=== PATIENT | female | born 1980 | race Caucasian/White ===

== ENCOUNTER 2016-07-07 08:32 | Observation (INO) | payer MEDICAID ==
[~2016-07-07] VITALS: Ht 152.4 cm; Wt 68.0 kg
[2016-07-07] MEDS ORDERED: PREN-88 PO (12:30)
[2016-07-07] MEDS ORDERED: iron PO (12:30)
== END 2016-07-07 12:55 | disposition home or self-care (01) ==
LOC: L&D 08:32
PROVIDERS: ADMIT Obstetrics & Gynecology; ATTEND Obstetrics & Gynecology
DX: O26.893 Other specified pregnancy related conditions, third trimester (principal); R10.9 Unspecified abdominal pain; Z3A.39 39 weeks gestation of pregnancy
CPT/HCPCS: G0378 ×3

== ENCOUNTER 2017-09-06 06:22 | Day surgery (SDC) | payer MEDICAID ==
[~2017-09-06] VITALS: Ht 152.4 cm; Wt 57.2 kg
[2017-09-06] MEDS ORDERED: LACTATED RINGERS 1,000 ML IV SCH (06:30)
[2017-09-06 07:07] LABS: UCG SCREEN NEGATIVE
[2017-09-06 07:10] LABS: CHLORIDE 107 mEq/L (98-107)
[2017-09-06 07:11] LABS: INR 1.1; PARTIAL THROMBOPLASTIN TIME 28.9 sec (23.4-31.0)
[2017-09-06] MEDS ORDERED: BIRTH CONTROL PILL PO (07:29)
[2017-09-06] MEDS ORDERED: IBUP-2028 PO (07:29)
[2017-09-06] MEDS ORDERED: SKIN ADHESIVE 0.7 GM EA TOP ONE (07:37)
[2017-09-06] MEDS ORDERED: BUPIVACAINE HCL/PF 0.5% (5MG/ML) 10ML ONE (07:37)
[2017-09-06 07:41] LABS: BASOPHILS % 0.9 % (0.0-2.0); HEMATOCRIT. 42.2 % (36.0-48.0); HEMOGLOBIN. 14.5 g/dL (12.0-16.0); LYMPHOCYTES % 39.4 % (20.0-50.0); MEAN CORPUSCULAR VOLUME 87.2 fL (81.0-99.0); MEAN PLATELET VOLUME 8.7 fl (7.4-10.4); MONOCYTES % 8.5 % (2.0-8.0); NEUTROPHILS % 49.2 % (40.0-76.0); PLATELET 227 x1000/uL (130-400); RED BLOOD CELL COUNT 4.84 mill/uL (4.2-5.4); RED CELL DISTRIBUTION WIDTH 13.1 % (11.6-14.6)
[2017-09-06] MEDS ORDERED: EPHEDRINE SULFATE 50MG/ML VIAL ONE (08:48)
[2017-09-06] MEDS ORDERED: GLYCOPYRROLATE 0.2 MG/ML 2ML VIAL ONE (08:48)
[2017-09-06] MEDS ORDERED: MIDAZOLAM HCL 2 MG/2 ML VIAL ONE (08:48)
[2017-09-06] MEDS ORDERED: LIDOCAINE HCL/PF 1% 10 MG/ML 5ML VIAL ONE (08:48)
[2017-09-06] MEDS ORDERED: ROCURONIUM BROMIDE 10MG/ML VIAL 5ML IV ONE (08:48)
[2017-09-06] MEDS ORDERED: SUCCINYLCHOLINE CHLORIDE 200MG/10ML VIAL IV ONE (08:48)
[2017-09-06] MEDS ORDERED: PROPOFOL 200MG/20ML VIAL IV ONE (08:48)
[2017-09-06] MEDS ORDERED: CEFAZOLIN SODIUM 1000MG/VIAL ONE (08:48)
[2017-09-06] MEDS ORDERED: PHENYLEPHRINE HCL 10 MG/ML 1ML (IV VIAL) IV ONE (08:48)
[2017-09-06] MEDS ORDERED: ONDANSETRON HCL 4MG/2ML VIAL ONE (08:48)
[2017-09-06] MEDS ORDERED: NEOSTIGMINE METHYLSULFATE 1MG/ML 10 ML VIAL ONE (08:48)
[2017-09-06] MEDS ORDERED: FENTANYL CITRATE/PF 50MCG/ML 2ML VIAL ONE (08:48)
[2017-09-06] MEDS ORDERED: SODIUM CHLORIDE 0.9% 10ML VIAL ONE (08:48)
[2017-09-06] MEDS ORDERED: METOCLOPRAMIDE HCL 10MG/2ML VIAL ONE (08:48)
[2017-09-06] MEDS ORDERED: SODIUM CHLORIDE 0.9% 1,000 ML IV ONE (09:51)
[2017-09-06] MEDS ORDERED: HYDROMORPHONE HCL/PF 2MG/ML CPJ IV PRN (10:00)
[2017-09-06] MEDS ORDERED: MEPERIDINE HCL/PF 25MG/ML CPJ IV PRN (10:00)
[2017-09-06] MEDS ORDERED: ONDANSETRON HCL 4MG/2ML VIAL IV PRN (10:00)
[2017-09-06] MEDS ORDERED: IBUPROFEN 800MG TABLET PO PRN (10:30)
[2017-09-06 11:03] VITALS: BP 165/95
[2017-09-06 11:34] LABS: BASOPHILS % 0.6 % (0.0-2.0); EOSINOPHILS % 0.4 % (0.0-5.0); HEMOGLOBIN. 13.4 g/dL (12.0-16.0); LYMPHOCYTES % 23.8 % (20.0-50.0); MEAN CORPUSCULAR HEMOGLOBIN 29.9 pg (28.0-32.0); MEAN CORPUSCULAR VOLUME 86.8 fL (81.0-99.0); MEAN PLATELET VOLUME 8.4 fl (7.4-10.4); MONOCYTES % 6.3 % (2.0-8.0); NEUTROPHILS % 68.9 % (40.0-76.0); PLATELET 187 x1000/uL (130-400); RED CELL DISTRIBUTION WIDTH 13.2 % (11.6-14.6)
== END 2017-09-06 14:00 | disposition home or self-care (01) ==
LOC: OR 06:22
PROVIDERS: ATTEND Obstetrics & Gynecology
DX: Z30.2 Encounter for sterilization (principal); Z64.1 Problems related to multiparity; Z79.1 Long term (current) use of non-steroidal anti-inflammatories (NSAID)
CPT/HCPCS: 36415; 58670; 80048; 81025; 85025; 85610; 85730; A4216; C1725; J0330; J0690; J2175; J2250; J2370; J2405; J2710; J2765; J3010; J3490; J7120; J2704